=== PATIENT | male | born 1975 | race American Indian/Alaskan Native ===

== ENCOUNTER 2017-07-24 21:29 | Observation (INO) | payer SELFPAY ==
[2017-07-24 21:48] VITALS: BMI 29.7
--- NOTE | 2017-07-24 22:48 | ED PDOC ---
Arrival/HPI - General Chief Complaint: Lower Extremity Problem/Injury Time Seen by Provider: 07/24/17 22:20 Historian: Patient - History of Present Illness Narrative History of Present Illness (Text): 07/24/17 22:48 42 year old male, whose past medical history includes chronic back pain, presents to the emergency department complaining of chest discomfort and shortness of breath at time that began a few weeks ago associated with bilateral leg swelling. Patient finds it difficultly to ambulate due to leg swelling. Patient denies any history of trauma or drug use. Patient denies any fever, chills, cough, chest pain, nausea, vomiting, diarrhea, urinary symptoms, back pain, neck pain, headache, dizziness, or any other complaints. PMD: Dr. Kashmir Aceves Time/Duration: > week Symptom Onset: Gradual Symptom Course: Unchanged Activities at Onset: Light Context: Home Past Medical History - Provider Review Nursing Documentation Reviewed: Yes - Infectious Disease Hx of Infectious Diseases: None - Tetanus Immunization Tetanus Immunization: Unknown - Cardiac Hx Cardiac Disorders: No Hx Hypertension: No - Pulmonary Hx Bronchitis: Yes - Neurological HX Cerebrovascular Accident: No Hx Seizures: No - HEENT Hx HEENT Disorder: No - Renal Hx Renal Disorder: No - Endocrine/Metabolic Hx Endocrine Disorders: No - Hematological/Oncological Hx Cancer: No - Integumentary Hx Dermatological Disorder: No - Musculoskeletal/Rheumatological Hx Musculoskeletal Disorders: No Hx Falls: No - Gastrointestinal Hx Gastrointestinal Disorders: No - Genitourinary/Gynecological Hx Sexually Transmitted Diseases: No - Psychiatric Hx Substance Use: Yes (Snorts Heroin and Cocaine) - Anesthesia Hx Anesthesia: No Family/Social History - Physician Review Nursing Documentation Reviewed: Yes Family/Social History: No Known Family HX Smoking Status: Heavy Smoker > 10 Cigarettes Daily Hx Alcohol Use: Yes Hx Substance Use: Yes (Snorts Heroin and Cocaine) Substance used: Heroine, Marijuana, PCP Allergies/Home Meds Allergies/Adverse Reactions: Allergies No Known Allergies Allergy (Verified 12/02/16 01:42) Review of Systems - Physician Review All systems were reviewed & negative as marked: Yes - Review of Systems Constitutional: absent: Fevers, Other (Chills) Respiratory: SOB. absent: Cough Cardiovascular: Chest Pain, Edema (bialteral lower leg edema) Gastrointestinal: absent: Diarrhea, Nausea, Vomiting Genitourinary Male: absent: Dysuria, Frequency, Hematuria Musculoskeletal: absent: Back Pain, Neck Pain Neurological: absent: Headache, Dizziness Physical Exam Vital Signs Reviewed: Yes Vital Signs Temp Pulse Resp BP Pulse Ox 07/25/17 01:03 98.0 F 83 18 128/70 100 Temperature: Afebrile Blood Pressure: Normal Pulse: Regular Respiratory Rate: Normal Appearance: Positive for: Well-Appearing, Non-Toxic, Comfortable, Other (Obese) Pain Distress: None Mental Status: Positive for: Alert and Oriented X 3 - Systems Exam Head: Present: Atraumatic, Normocephalic Pupils: Present: PERRL Extroacular Muscles: Present: EOMI Conjunctiva: Present: Normal Mouth: Present: Moist Mucous Membranes Neck: Present: Normal Range of Motion (Supple). No: MIDLINE TENDERNESS, Paraspinal Tenderness Respiratory/Chest: Present: Clear to Auscultation, Good Air Exchange. No: Respiratory Distress, Accessory Muscle Use Cardiovascular: Present: Regular Rate and Rhythm, Normal S1, S2. No: Murmurs Abdomen: No: Tenderness, Distention, Peritoneal Signs Back: Present: Normal Inspection Upper Extremity: Present: Normal Inspection. No: Cyanosis, Edema Lower Extremity: Present: Edema (Bilateral lower leg edema) Neurological: Present: GCS=15, CN II-XII Intact, Speech Normal Skin: Present: Warm, Dry, Normal Color. No: Rashes Psychiatric: Present: Alert, Oriented x 3, Normal Insight, Normal Concentration Medical Decision Making ED Course and Treatment: 07/24/17 22:48 Impression: 42 year old male presents complaining of chest discomfort and shortness of breath at times that began a few weeks ago associated with bilateral leg swelling. Plan: -- EKG -- Labs -- Chest X-ray -- US Duplex Lower Extrm Vein Bilat -- Reassess and disposition Progress Notes: 07/25/17 00:29 EKG shows NSR at 95 BPM with prolonged QT. Nonspecific ST/T Changes. Interpreted by me. 07/25/17 00:51 Doppler Ultrasound: Negative 07/25/17 00:52 CXR Impression: As read by me, no acute process. 07/25/17 01:[address] Washington who is aware and agrees with the plan. Accepts the patient to hospitalist service. - Lab Interpretations Lab Results: 07/24/17 22:55 07/24/17 22:55 Lab Results 07/24/17 22:55: WBC 8.5, RBC 4.31, Hgb 13.7 L, Hct 40.4 L, MCV 93.7, MCH 31.8, MCHC 33.9, RDW 12.7, Plt Count 367, MPV 9.0 07/24/17 22:55: Sodium 143, Potassium 3.8, Chloride 100, Carbon Dioxide 33, Anion Gap 14, BUN 8, Creatinine 0.8, Est GFR ( Amer) > 60, Est GFR (Non- Af Amer) > 60, Random Glucose 136 H, Calcium 10.1, Total Bilirubin 0.3, AST 61 H D, ALT 61 H, Alkaline Phosphatase 62, Lactate Dehydrogenase 555, Total Creatine Kinase 1097 H, CK-MB (CK-2) 3.1, CK-MB (CK-2) % Cancelled, Troponin I < 0.01, NT-Pro-B Natriuret Pep < 11.1, Total Protein 7.0, Albumin 3.9, Globulin 3.1, Albumin/Globulin Ratio 1.3 07/24/17 22:55: PT 12.1, INR 1.06, APTT 32.4 I have reviewed the lab results: Yes - RAD Interpretation Radiology Orders: 07/24/17 22:44 CHEST PORTABLE [RAD] Stat 07/24/17 22:45 DUPLEX LOWER EXTRM VEIN BILAT [US] Stat - EKG Interpretation Interpreted by ED Physician: Yes Type: 12 lead EKG - Medication Orders Current Medication Orders: Discontinued Medications Aspirin (Aspirin) 325 mg PO ONCE STA Stop: 07/24/17 23:48 Last Admin: 07/25/17 00:52 Dose: 325 mg - Scribe Statement The provider has reviewed the documentation as recorded by the Cheryl Schaefer Provider Scribe Attestation: All medical record entries made by the Cheryl were at my direction and personally dictated by me. I have reviewed the chart and agree that the record accurately reflects my personal performance of the history, physical exam, medical decision making, and the department course for this patient. I have also personally directed, reviewed, and agree with the discharge instructions and disposition. Disposition/Present on Arrival - Present on Arrival Any Indicators Present on Arrival: No History of DVT/PE: No History of Uncontrolled Diabetes: No Urinary Catheter: No History of Decub. Ulcer: No History Surgical Site Infection Following: None - Disposition Have Diagnosis and Disposition been Completed?: Yes Diagnosis: Chest pain, Leg swelling Disposition: HOSPITALIZED Disposition Time: 01:04 Patient Plan: Observation Patient Problems: Current Active Problems Problem Status Onset Chest pain Acute Leg swelling Acute Condition: STABLE Discharge Instructions (ExitCare): Chest Pain (ED) Referrals: Chandler Aceves MD [Primary Care Provider] - Follow up with primary Forms: [employer] (Hungarian)
[2017-07-24 23:13] LABS: HEMOGLOBIN 13.7 g/dL (14.0-18.0); MEAN CELL VOLUME 93.7 fl (80.0-105.0); MEAN CORPUSCULAR HEMOGLOBIN 31.8 pg (25.0-35.0); MEAN CORPUSCULAR HGB CONC 33.9 g/dl (31.0-37.0); RBC 4.31 10^6/uL (3.5-6.1); RED CELL DISTRIBUTION WIDTH 12.7 % (11.5-14.5); WHITE BLOOD COUNT 8.5 10^3/ul (4.5-11.0)
[2017-07-24 23:24] LABS: BLOOD UREA NITROGEN 8 mg/dL (7-21); GFR AFRICAN-AMERICAN > 60; GFR NON-AFRICAN AMERICAN > 60
[2017-07-24 23:25] LABS: ALB/GLOB RATIO 1.3 (1.1-1.8); ALBUMIN 3.9 g/dL (3.0-4.8); ALT/SGPT 61 U/L (7-56); AST/SGOT 61 U/L (17-59); CALCIUM 10.1 mg/dL (8.4-10.5)
[2017-07-24 23:35] LABS: TROPONIN I < 0.01 ng/mL
[2017-07-24 23:36] LABS: B-TYPE NATRIURETIC PEPTIDE < 11.1 pg/mL (0-450)
[2017-07-24 23:37] LABS: INR 1.06 (0.93-1.08); PROTHROMBIN TIME 12.1 SECONDS (9.4-12.5)
[2017-07-24 23:38] LABS: PARTIAL THROMBOPLASTIN TIME 32.4 Seconds (25.1-36.5)
[2017-07-24 23:44] LABS: CK-MB 3.1 ng/mL (0.0-3.6)
[2017-07-24] MEDS ORDERED: Morphine 4 mg/ml ISec IVP STA (23:47)
--- NOTE | 2017-07-25 02:23 | CP.PCM.HP ---
History of Present Illness - History of Present Illness History of Present Illness: Medicine H&P: Dr. Washington Chief Complaint: Abdominal Pain and LLE Pain HPI: 42 year old male with past medical history of chronic back pain, sleep apnea, opioid use, and cocaine abuse presents with one week duration of progressively worsening lower back pain that shoots down his left lower extremity. Patient's girlfriend at bedside helping with history as patient sleeps. Patient states that he has had several injections in his lower back for pain but it has not helped. Patient also complains of epigastric abdominal pain with bilateral lower extremity swelling. Patient told ED physician that he has chest pain, but denies any radiation, any associated symptoms and denies chest pain on this interview Review Of Systems: 12 point ROS obtained and negative except as per HPI Surgical History: Injections in back Medical History: Chronic Back Pain, Sleep Apnea Allergies: NKDA Social History: Patient admits to cocaine and opioids; admits to tobacco; denies alcohol Home Meds: Reviewed, see MAR Family History: Hypertension PMD: Denies Present on Admission - Present on Admission Any Indicators Present on Admission: No Past Patient History - Infectious Disease Hx of Infectious Diseases: None - Tetanus Immunizations Tetanus Immunization: Unknown - Past Social History Smoking Status: Heavy Smoker > 10 Cigarettes Daily - CARDIAC Hx Cardiac Disorders: No Hx Hypertension: No - PULMONARY Hx Bronchitis: Yes - NEUROLOGICAL HX Cerebrovascular Accident: No Hx Seizures: No - HEENT Hx HEENT Problems: No - RENAL Hx Chronic Kidney Disease: No - ENDOCRINE/METABOLIC Hx Endocrine Disorders: No - HEMATOLOGICAL/ONCOLOGICAL Hx Cancer: No - INTEGUMENTARY Hx Dermatological Problems: No - MUSCULOSKELETAL/RHEUMATOLOGICAL Hx Musculoskeletal Disorders: No Hx Falls: No - GASTROINTESTINAL Hx Gastrointestinal Disorders: No - GENITOURINARY/GYNECOLOGICAL Hx Sexually Transmitted Disorders: No - PSYCHIATRIC Hx Substance Use: Yes (Snorts Heroin and Cocaine) - SURGICAL HISTORY Hx Surgeries: No - ANESTHESIA Hx Anesthesia: No Meds Allergies/Adverse Reactions: Allergies Allergy/AdvReac Type Severity Reaction Status Date / Time No Known Allergies Allergy Verified 12/02/16 01:42 Physical Exam - Constitutional Appears: Well - Head Exam Head Exam: ATRAUMATIC, NORMAL INSPECTION, NORMOCEPHALIC - Eye Exam Eye Exam: EOMI, Normal appearance, PERRL Pupil Exam: NORMAL ACCOMODATION, PERRL - ENT Exam ENT Exam: Mucous Membranes Moist, Normal Exam - Neck Exam Neck exam: Positive for: Normal Inspection - Respiratory Exam Respiratory Exam: Clear to Auscultation Bilateral, NORMAL BREATHING PATTERN - Cardiovascular Exam Cardiovascular Exam: REGULAR RHYTHM - GI/Abdominal Exam GI & Abdominal Exam: Normal Bowel Sounds, Soft. absent: Tenderness - Extremities Exam Extremities exam: Positive for: normal inspection - Back Exam Back exam: NORMAL INSPECTION - Neurological Exam Neurological exam: Alert, CN II-XII Intact, Normal Gait, Oriented x3, Reflexes Normal - Psychiatric Exam Psychiatric exam: Normal Affect, Normal Mood - Skin Skin Exam: Dry, Intact, Normal Color, Warm Results - Vital Signs Recent Vital Signs: Last Vital Signs Temp 98.0 F 07/25/17 01:03 Pulse 83 07/25/17 01:03 Resp 18 07/25/17 01:03 BP 128/70 07/25/17 01:03 Pulse Ox 100 07/25/17 01:03 - Labs Result Diagrams: 07/24/17 22:55 07/24/17 22:55 Assessment & Plan - Assessment and Plan (Free Text) Assessment: 42 year old male with pertinent history of chronic back pain and opioid abuse presenting with chest pain and abdominal pain as well as back pain radiating down his left lower extremity. Tropes and EKG negative X 1, bnp negative X1. Patient denies cardiac history. Patient's LFT's are elevated and there is abdominal pain with bilateral lower extremity pitting edema. Creatinine Kinase is also elevated and patient's drug screen positive for cocaine. Chest pain rule out ACS - Tropes, EKG series - No need for cardio consult at this time - Consider ECHO with day team Abdominal Pain, likely 2/2 Drug Toxicity - Hep panel - Abdominal u/s - GI Consult: Dr. Bennett - Consider CT Abdomen Pelvis Sleep Apnea - CPAP Chronic Pain - Continue home medications GI/DVT Prophylaxis - Protonix/Lovenox
[2017-07-25] MEDS: Sodium Chloride 0.9% 1,000 ML IV SCH ×2 (04:00→14:33)
[2017-07-25] MEDS ORDERED: Pantoprazole 40 mg EC Tab PO SCH (06:00)
[2017-07-25 06:32] VITALS: RESP 20
[2017-07-25 07:11] LABS: BASO # 0.02 K/mm3 (0.0-2.0); BASO % 0.3 % (0.0-3.0); EOS # 0.5 (0.0-0.7); EOS % 6.2 % (1.5-5.0); GRAN # 3.07 (1.4-6.5); GRAN % 39.4 % (50.0-68.0); HEMOGLOBIN 13.1 g/dL (14.0-18.0); LYMPH # 3.7 (1.2-3.4); LYMPH % 47.2 % (22.0-35.0); MEAN CELL VOLUME 94.1 fl (80.0-105.0); MEAN CORPUSCULAR HEMOGLOBIN 30.9 pg (25.0-35.0); MEAN CORPUSCULAR HGB CONC 32.8 g/dl (31.0-37.0); MEAN PLATELET VOLUME 9.2 fl (7.0-11.0); MONO # 0.5 (0.1-0.6); MONO % 6.9 % (1.0-6.0); RBC 4.24 10^6/uL (3.5-6.1); WHITE BLOOD COUNT 7.8 10^3/ul (4.5-11.0)
[2017-07-25 07:30] LABS: TROPONIN I < 0.01 ng/mL
[2017-07-25 08:01] LABS: ALB/GLOB RATIO 1.3 (1.1-1.8); ALBUMIN 3.7 g/dL (3.0-4.8); ALT/SGPT 57 U/L (7-56); AST/SGOT 46 U/L (17-59); BLOOD UREA NITROGEN 8 mg/dL (7-21); CALCIUM 9.9 mg/dL (8.4-10.5); GFR AFRICAN-AMERICAN > 60; GFR NON-AFRICAN AMERICAN > 60
--- NOTE | 2017-07-25 08:53 | RAD ---
HISTORY: chest pain COMPARISON: No prior. FINDINGS: LUNGS: No active pulmonary disease. Left costophrenic angle is excluded from the radiograph. PLEURA: No significant pleural effusion identified, no pneumothorax apparent. CARDIOVASCULAR: Heart is mildly enlarged. This may be related to the portable projection. Left costophrenic angle is excluded from the radiograph. OSSEOUS STRUCTURES: No significant abnormalities. VISUALIZED UPPER ABDOMEN: Normal. OTHER FINDINGS: None. IMPRESSION: No active disease.
--- NOTE | 2017-07-25 09:13 | US ---
HISTORY: abdominal pain COMPARISON: None. TECHNIQUE: Sonographic evaluation of the abdomen. FINDINGS: LIVER: Measures 16.8 cm. Mildly increased overall echogenicity of the liver parenchyma. No mass. No intrahepatic bile duct dilatation. GALLBLADDER: Gallbladder is moderately contracted with possible gallbladder sludge. No gallbladder wall thickening is appreciated. No pericholecystic fluid is noted. The contracted state of the gallbladder limits evaluation. COMMON BILE DUCT: Measures 3-4 mm. No stones. No dilatation. PANCREAS: Pancreas is grossly normal in outline. No pancreatic enlargement is seen. No peripancreatic collections are noted. RIGHT KIDNEY: Measures 10.0cm. Normal echogenicity. No calculus, mass, or hydronephrosis. LEFT KIDNEY: Measures 12.2cm. Normal echogenicity. No calculus, mass, or hydronephrosis. SPLEEN: Normal in size and contour. No mass. AORTA: Visualized aorta was within normal limits although the majority of the aorta was obscured by bowel gas. IVC: IVC was not adequately seen. OTHER FINDINGS: No ascites. IMPRESSION: Mild fatty infiltration of the liver. Liver is top normal in size. Contracted gallbladder limiting evaluation. No appreciable gallbladder wall thickening. No ductal dilatation.
--- NOTE | 2017-07-25 09:23 | CP.PCM.CON ---
History of Present Illness - History of Present Illness History of Present Illness: Asked by hospitalist team for a GI consultation on this patient. 42 year old male with history of obesity, sleep apnea, polysubstance abuse who presents to hospital with complaint of lower extremity swelling/pain and LUQ abdominal pain. He describes intermittent LUQ pain for the past 2 months which is 4/10 intensity, at times radiates to epigastric area and worse after meal consumption. He denies associated nausea, vomiting, diarrhea, fever/chills, weight loss, or rectal bleeding. He also describes sharp L sided thigh pain which limits his mobility along with progressive bilateral lower extremity swelling for the past few weeks. He admits to recent drug use yesterday, though cannot recall which type. No prior endoscopic evaluation. Social history: smokes 1/2 PPD cigarettes, no ETOH, +drug use Family history: reviewed with patient, denies GI malignancies Review of Systems - Review of Systems Review of Systems: - All other comprehensive 12 point review of systems performed, negative - Cardiovascular Cardiovascular: absent: Acrocyanosis, Chest Pain, Chest Pain at Rest, Chest Pain with Activity, Claudication, Diaphoresis, Dyspnea, Dyspnea on Exertion, Edema, Irregular Heart Rhythm, Pain Radiating to Arm/Neck/Jaw, Leg Edema, Leg Ulcers, Lightheadedness, Orthopnea, Palpitations, Paroxysmal Nocturnal Dyspnea, Pedal Edema, Radiating Pain, Rapid Heart Rate, Slow Heart Rate, Syncope, Other - Respiratory Respiratory: absent: Cough, Dyspnea, Hemoptysis, Dyspnea on Exertion, Wheezing, Snoring, Stridor, Pain on Inspiration, Chest Congestion, Excessive Mucous Production, Change in Mucous Color, Pain with Coughing, Other - Gastrointestinal Gastrointestinal: Abdominal Pain - Musculoskeletal Musculoskeletal: Radiating Pain into Limb - Neurological Neurological: absent: Abnormal Gait, Abnormal Hearing, Abnormal Movements, Abnormal Speech, Behavioral Changes, Burning Sensations, Confusion, Convulsions , Disequilibrium, Dizziness, Numbness, Focal Weakness, Frequent Falls, Headaches , Lack of Coordination, Loss of Vision, Memory Loss, Paresthesias, Radicular Pain, Restless Legs, Sensory Deficit, Syncope, Tingling, Tremor, Vertigo, Weakness, Other Visual Disturbances, Other Past Patient History - Infectious Disease Hx of Infectious Diseases: None - Tetanus Immunizations Tetanus Immunization: Unknown - Past Social History Smoking Status: Heavy Smoker > 10 Cigarettes Daily - CARDIAC Hx Cardiac Disorders: No Hx Hypertension: No - PULMONARY Hx Asthma: Yes Hx Sleep Apnea: Yes - NEUROLOGICAL HX Cerebrovascular Accident: No Hx Seizures: No - HEENT Hx HEENT Problems: No - RENAL Hx Chronic Kidney Disease: No - ENDOCRINE/METABOLIC Hx Endocrine Disorders: No - HEMATOLOGICAL/ONCOLOGICAL Hx Cancer: No - INTEGUMENTARY Hx Dermatological Problems: No - MUSCULOSKELETAL/RHEUMATOLOGICAL Hx Back Pain: Yes (Chronic) Hx Falls: No - GASTROINTESTINAL Hx Gastrointestinal Disorders: No - GENITOURINARY/GYNECOLOGICAL Hx Sexually Transmitted Disorders: No - PSYCHIATRIC Hx Psychophysiologic Disorder: Yes (Heavy smoker, Heroin and Cocaine use) Hx Substance Use: Yes - SURGICAL HISTORY Hx Surgeries: Yes (Right rotator cuff surgery) - ANESTHESIA Hx Anesthesia: No Meds Allergies/Adverse Reactions: Allergies Allergy/AdvReac Type Severity Reaction Status Date / Time No Known Allergies Allergy Verified 12/02/16 01:42 - Medications Medications: Current Medications Diazepam (Valium) 2 mg PO BID [facility] PRN Reason: Protocol Enoxaparin Sodium (Lovenox) 40 mg SC DAILY [facility] PRN Reason: Protocol Gabapentin (Neurontin) 300 mg PO TID [facility] PRN Reason: Protocol Sodium Chloride (Sodium Chloride 0.9%) 1,000 mls @ 100 mls/hr IV .Q10H [facility] Last Admin: 07/25/17 04:00 Dose: 100 mls/hr Pantoprazole Sodium (Protonix Ec Tab) 40 mg PO 0600 [facility] Last Admin: 07/25/17 06:58 Dose: 40 mg Tramadol HCl (Ultram) 50 mg PO TID [facility] Trazodone HCl (Desyrel) 100 mg PO HS PRN PRN Reason: Insomnia Physical Exam - Constitutional Appears: Non-toxic, No Acute Distress - Head Exam Head Exam: NORMAL INSPECTION - Eye Exam Eye Exam: EOMI, Normal appearance - ENT Exam ENT Exam: Mucous Membranes Moist - Respiratory Exam Respiratory Exam: Clear to Auscultation Bilateral - Cardiovascular Exam Cardiovascular Exam: REGULAR RHYTHM, +S1, +S2 - GI/Abdominal Exam GI & Abdominal Exam: Normal Bowel Sounds, Soft, Tenderness Additional comments: obese, mild LUQ tenderness to palpation, no rebound/guarding no palpable hepato/splenomegaly - Extremities Exam Extremities exam: Positive for: pedal edema - Neurological Exam Neurological exam: Alert, CN II-XII Intact, Oriented x3, Reflexes Normal - Psychiatric Exam Psychiatric exam: Normal Affect, Normal Mood - Skin Skin Exam: Dry, Intact, Normal Color, Warm Results - Vital Signs Recent Vital Signs: Last Vital Signs Temp 97.4 F L 07/25/17 06:00 Pulse 88 07/25/17 06:00 Resp 20 07/25/17 06:00 BP 141/71 07/25/17 06:00 Pulse Ox 96 07/25/17 06:00 - Labs Result Diagrams: 07/25/17 06:00 07/25/17 06:00 Labs: Laboratory Results - last 24 hr 07/25/17 07/25/17 07/25/17 01:30 06:00 06:00 WBC 7.8 RBC 4.24 Hgb 13.1 L Hct 39.9 L MCV 94.1 MCH 30.9 MCHC 32.8 RDW 13.0 Plt Count 380 MPV 9.2 Gran % 39.4 L Lymph % (Auto) 47.2 H [place] % (Auto) 6.9 H Eos % (Auto) 6.2 H Baso % (Auto) 0.3 Gran # 3.07 Lymph # (Auto) 3.7 H [place] # (Auto) 0.5 Eos # (Auto) 0.5 Baso # (Auto) 0.02 Sodium 142 Potassium 3.9 Chloride 101 Carbon Dioxide 31 Anion Gap 14 BUN 8 Creatinine 0.8 Est GFR ( Amer) > 60 Est GFR (Non-Af Amer) > 60 Random Glucose 112 H Calcium 9.9 Phosphorus 4.7 H Magnesium 2.4 H Total Bilirubin 0.2 AST 46 ALT 57 H Alkaline Phosphatase 60 Lactate Dehydrogenase Total Creatine Kinase CK-MB (CK-2) CK-MB (CK-2) % Troponin I Total Protein 6.6 Albumin 3.7 Globulin 2.9 Albumin/Globulin Ratio 1.3 07/25/17 06:00 WBC RBC Hgb Hct MCV MCH MCHC RDW Plt Count MPV Gran % Lymph % (Auto) [place] % (Auto) Eos % (Auto) Baso % (Auto) Gran # Lymph # (Auto) [place] # (Auto) Eos # (Auto) Baso # (Auto) Sodium Potassium Chloride Carbon Dioxide Anion Gap BUN Creatinine Est GFR ( Amer) Est GFR (Non-Af Amer) Random Glucose Calcium Phosphorus Magnesium Total Bilirubin AST ALT Alkaline Phosphatase Lactate Dehydrogenase 449 Total Creatine Kinase 788 H CK-MB (CK-2) 2.0 CK-MB (CK-2) % Cancelled Troponin I < 0.01 Total Protein Albumin Globulin Albumin/Globulin Ratio Assessment & Plan - Assessment and Plan (Free Text) Assessment: Obesity Sleep apnea Polysubstance abuse Abdominal pain - no worrisome or alarm features, suggestive of non-ulcer dyspepsia Lower extremity edema Plan: - Diet as tolerated - Continue with PPI therapy - Await results of viral hepatitis panel and abdominal US - Continue to monitor LFTs - Substance abuse cessation counseling - No further planned GI interventions, suggest additional outpatient follow up. Will sign off case, please reconsult as necessary, thank you.
[2017-07-25] MEDS ORDERED: Enoxaparin 40 mg Syringe SC SCH (10:00)
--- NOTE | 2017-07-25 11:18 | CARD ---
APPROVED REPORT EKG Measurement Heart [id number] <Conclusion> Normal sinus rhythm Normal ECG
--- NOTE | 2017-07-25 11:19 | CARD ---
APPROVED REPORT EKG Measurement Heart [id number] <Conclusion> Normal sinus rhythm Prolonged QT Abnormal ECG
--- NOTE | 2017-07-25 11:58 | CP.PCM.DIS ---
<Luis Daniel Pollard - Last Filed: 07/25/17 16:57> Provider - Provider Date of Admission: 07/25/17 01:02 Attending physician: Saúl Ha MD Primary care physician: Chandler Aceves MD Consults: GI: Donald Time Spent in preparation of Discharge (in minutes): 35 Diagnosis - Discharge Diagnosis (1) Epigastric pain Status: Resolved Priority: High (2) Chronic back pain Status: Chronic Priority: Medium (3) Chest pain Status: Resolved Priority: Medium (4) Leg swelling Status: Chronic Priority: Medium Hospital Course - Lab Results Lab Results: Most Recent Lab Values WBC 7.8 10^3/ul (4.5-11.0) 07/25/17 06:00 RBC 4.24 10^6/uL (3.5-6.1) 07/25/17 06:00 Hgb 13.1 g/dL (14.0-18.0) L 07/25/17 06:00 Hct 39.9 % (42.0-52.0) L 07/25/17 06:00 MCV 94.1 fl (80.0-105.0) 07/25/17 06:00 MCH 30.9 pg (25.0-35.0) 07/25/17 06:00 MCHC 32.8 g/dl (31.0-37.0) 07/25/17 06:00 RDW 13.0 % (11.5-14.5) 07/25/17 06:00 Plt Count 380 10^3/uL (120.0-450.0) 07/25/17 06:00 MPV 9.2 fl (7.0-11.0) 07/25/17 06:00 Gran % 39.4 % (50.0-68.0) L 07/25/17 06:00 Lymph % (Auto) 47.2 % (22.0-35.0) H 07/25/17 06:00 [place] % (Auto) 6.9 % (1.0-6.0) H 07/25/17 06:00 Eos % (Auto) 6.2 % (1.5-5.0) H 07/25/17 06:00 Baso % (Auto) 0.3 % (0.0-3.0) 07/25/17 06:00 Gran # 3.07 (1.4-6.5) 07/25/17 06:00 Lymph # (Auto) 3.7 (1.2-3.4) H 07/25/17 06:00 [place] # (Auto) 0.5 (0.1-0.6) 07/25/17 06:00 Eos # (Auto) 0.5 (0.0-0.7) 07/25/17 06:00 Baso # (Auto) 0.02 K/mm3 (0.0-2.0) 07/25/17 06:00 PT 12.1 SECONDS (9.4-12.5) 07/24/17 22:55 INR 1.06 (0.93-1.08) 07/24/17 22:55 APTT 32.4 Seconds (25.1-36.5) 07/24/17 22:55 Sodium 142 mmol/L (132-148) 07/25/17 06:00 Potassium 3.9 mmol/L (3.6-5.0) 07/25/17 06:00 Chloride 101 mmol/L (98-107) 07/25/17 06:00 Carbon Dioxide 31 mmol/L (21-33) 07/25/17 06:00 Anion Gap 14 (10-20) 07/25/17 06:00 BUN 8 mg/dL (7-21) 07/25/17 06:00 Creatinine 0.8 mg/dl (0.8-1.5) 07/25/17 06:00 Est GFR ( Amer) > 60 07/25/17 06:00 Est GFR (Non-Af Amer) > 60 07/25/17 06:00 Random Glucose 112 mg/dL (70-110) H 07/25/17 06:00 Calcium 9.9 mg/dL (8.4-10.5) 07/25/17 06:00 Phosphorus 4.7 mg/dL (2.5-4.5) H 07/25/17 01:30 Magnesium 2.4 mg/dL (1.7-2.2) H 07/25/17 01:30 Total Bilirubin 0.2 mg/dL (0.2-1.3) 07/25/17 06:00 AST 46 U/L (17-59) 07/25/17 06:00 ALT 57 U/L (7-56) H 07/25/17 06:00 Alkaline Phosphatase 60 U/L (38-126) 07/25/17 06:00 Lactate Dehydrogenase 449 U/L (333-699) 07/25/17 06:00 Total Creatine Kinase 788 U/L (35-230) H 07/25/17 06:00 CK-MB (CK-2) 2.0 ng/mL (0.0-3.6) 07/25/17 06:00 CK-MB (CK-2) % Cancelled 07/24/17 22:55 Troponin I < 0.01 ng/mL 07/25/17 06:00 NT-Pro-B Natriuret Pep < 11.1 pg/mL (0-450) 07/24/17 22:55 Total Protein 6.6 g/dL (5.8-8.3) 07/25/17 06:00 Albumin 3.7 g/dL (3.0-4.8) 07/25/17 06:00 Globulin 2.9 gm/dL 07/25/17 06:00 Albumin/Globulin Ratio 1.3 (1.1-1.8) 07/25/17 06:00 - Hospital Course Hospital Course: This is a 42 yo AA M with PMH of chronic back pain, ANTHONY on CPAP, opioid use, and polysubstance abuse who presented with complaint of worsening back pain radiating to LLE x1 week, epigastric pain, and bilateral LE swelling. The ED also reported the patient complaining of chest pain, but the patient continues to deny either the presence of chest pain or reporting chest pain to the ED. Patient seen by GI, who reviewed labs and Abd US, and reported unlikely to be GI issue. Patient reported hx of cocaine abuse and heroin, snorting but never injection, up to 3 times per week but refuses to detail last use. His legs were found to only have mild pitting edema, and his chest x-ray and lung auscultation were not suggestive of any pleural effusions/fluid overload. Trops x3 were obtained and were negative, and EKG did not show any arrhythmia or interval abnormalities, so patient was cleared for discharge. He was instructed to resume his home medications, to follow up with his PMD (Dr. Aceves ) within 1 week, and to follow up with his pain management/spine physician as previously scheduled. He was also instructed to discuss need for possible Echocardiogram with his PMD, to be obtained as outpatient, given his complaint of increased leg swelling. He was also instructed to cease all illicit substance use, especially in light of concern for possible cardiac dysfunction. He expressed understanding and agreement with these instructions. He was then discharged. Patient seen, reviewed, and discussed with attending, Dr. Ha. Discharge Exam - Head Exam Head Exam: ATRAUMATIC, NORMAL INSPECTION, NORMOCEPHALIC - Eye Exam Eye Exam: EOMI, Normal appearance. absent: Conjunctival injection, Scleral icterus Pupil Exam: absent: Irregular, Unequal - ENT Exam ENT Exam: Mucous Membranes Moist - Neck Exam Neck exam: Full Rom, Normal Inspection - Respiratory Exam Respiratory Exam: Decreased Breath Sounds (mildly decreased breath sounds in all howard, possibly 2/2 body habitus), Clear to PA & Lateral, NORMAL BREATHING PATTERN. absent: Accessory Muscle Use, Chest Wall Tenderness, Prolonged Expiratory Phase, Rales, Rhonchi, Wheezes, Respiratory Distress - Cardiovascular Exam Cardiovascular Exam: REGULAR RHYTHM, RRR, +S1, +S2. absent: Bradycardia, Tachycardia, Irregular Rhythm, JVD, +S4 - GI/Abdominal Exam GI & Abdominal Exam: Normal Bowel Sounds, Soft, Tenderness (mild discomfort but not outright pain when palpating epigastric region). absent: Diminished Bowel Sounds, Distended, Firm, Guarding, Hyperactive Bowel Sounds, Hypoactive Bowel Sounds, Rigid - Extremities Exam Extremities exam: pedal edema (trace to +1 pitting edema in bilateral LE from ankles to bottom 1/3rd of shins) - Neurological Exam Additional comments: awake and alert, following all commands appropriately, moving all extremities spontaneously, holding cane he says is for ambulatory assist - Psychiatric Exam Psychiatric exam: Normal Affect, Normal Mood - Skin Skin Exam: Dry, Intact, Normal Color, Warm Discharge Plan - Follow Up Plan Condition: STABLE Disposition: HOME/ ROUTINE Instructions: Heart Healthy Diet, Chronic Pain (DC), Shortness of Breath ( Dyspnea) (DC), Chest Pain (DC), Drug Abuse and Drug Addiction (DC) Additional Instructions: Please resume all home medications as previously prescribed. Please avoid all further illicit substance abuse, including heroin and cocaine. Using these further may cause irreversible damage to your heart and may kill you. Please follow up with your PMD (Dr. Aceves) within 1 week of discharge. Please follow up with your paint mixer hand as previously scheduled. Please return to a hospital if you experience worsening or new concerning symptoms. Referrals: Chandler Aceves MD [Primary Care Provider] - <Saúl Ha - Last Filed: 07/25/17 17:13> Provider - Provider Date of Admission: 07/25/17 01:02 Attending physician: Saúl Ha MD Primary care physician: Chandler Aceves MD Hospital Course - Lab Results Lab Results: Most Recent Lab Values WBC 7.8 10^3/ul (4.5-11.0) 07/25/17 06:00 RBC 4.24 10^6/uL (3.5-6.1) 07/25/17 06:00 Hgb 13.1 g/dL (14.0-18.0) L 07/25/17 06:00 Hct 39.9 % (42.0-52.0) L 07/25/17 06:00 MCV 94.1 fl (80.0-105.0) 07/25/17 06:00 MCH 30.9 pg (25.0-35.0) 07/25/17 06:00 MCHC 32.8 g/dl (31.0-37.0) 07/25/17 06:00 RDW 13.0 % (11.5-14.5) 07/25/17 06:00 Plt Count 380 10^3/uL (120.0-450.0) 07/25/17 06:00 MPV 9.2 fl (7.0-11.0) 07/25/17 06:00 Gran % 39.4 % (50.0-68.0) L 07/25/17 06:00 Lymph % (Auto) 47.2 % (22.0-35.0) H 07/25/17 06:00 [place] % (Auto) 6.9 % (1.0-6.0) H 07/25/17 06:00 Eos % (Auto) 6.2 % (1.5-5.0) H 07/25/17 06:00 Baso % (Auto) 0.3 % (0.0-3.0) 07/25/17 06:00 Gran # 3.07 (1.4-6.5) 07/25/17 06:00 Lymph # (Auto) 3.7 (1.2-3.4) H 07/25/17 06:00 [place] # (Auto) 0.5 (0.1-0.6) 07/25/17 06:00 Eos # (Auto) 0.5 (0.0-0.7) 07/25/17 06:00 Baso # (Auto) 0.02 K/mm3 (0.0-2.0) 07/25/17 06:00 PT 12.1 SECONDS (9.4-12.5) 07/24/17 22:55 INR 1.06 (0.93-1.08) 07/24/17 22:55 APTT 32.4 Seconds (25.1-36.5) 07/24/17 22:55 Sodium 142 mmol/L (132-148) 07/25/17 06:00 Potassium 3.9 mmol/L (3.6-5.0) 07/25/17 06:00 Chloride 101 mmol/L (98-107) 07/25/17 06:00 Carbon Dioxide 31 mmol/L (21-33) 07/25/17 06:00 Anion Gap 14 (10-20) 07/25/17 06:00 BUN 8 mg/dL (7-21) 07/25/17 06:00 Creatinine 0.8 mg/dl (0.8-1.5) 07/25/17 06:00 Est GFR ( Amer) > 60 07/25/17 06:00 Est GFR (Non-Af Amer) > 60 07/25/17 06:00 Random Glucose 112 mg/dL (70-110) H 07/25/17 06:00 Calcium 9.9 mg/dL (8.4-10.5) 07/25/17 06:00 Phosphorus 4.7 mg/dL (2.5-4.5) H 07/25/17 01:30 Magnesium 2.4 mg/dL (1.7-2.2) H 07/25/17 01:30 Total Bilirubin 0.2 mg/dL (0.2-1.3) 07/25/17 06:00 AST 46 U/L (17-59) 07/25/17 06:00 ALT 57 U/L (7-56) H 07/25/17 06:00 Alkaline Phosphatase 60 U/L (38-126) 07/25/17 06:00 Lactate Dehydrogenase 389 U/L (333-699) 07/25/17 15:30 Total Creatine Kinase 586 U/L (35-230) H 07/25/17 15:30 CK-MB (CK-2) 1.2 ng/mL (0.0-3.6) 07/25/17 15:30 CK-MB (CK-2) % Cancelled 07/24/17 22:55 Troponin I < 0.01 ng/mL 07/25/17 15:30 NT-Pro-B Natriuret Pep < 11.1 pg/mL (0-450) 07/24/17 22:55 Total Protein 6.6 g/dL (5.8-8.3) 07/25/17 06:00 Albumin 3.7 g/dL (3.0-4.8) 07/25/17 06:00 Globulin 2.9 gm/dL 07/25/17 06:00 Albumin/Globulin Ratio 1.3 (1.1-1.8) 07/25/17 06:00 Attending/Attestation - Attestation I have personally seen and examined this patient.: Yes I have fully participated in the care of the patient.: Yes I have reviewed all pertinent clinical information, including history, physical exam and plan: Yes Notes (Text): 07/25/17 17:07 42 year old male with past medical hsitory of chronic back pain, ANTHONY, and substance abuse who presented with complaint of abdominal pain and LE edema. He also reported recent cocaine use. He was counselled on risks of continued substance abuse. He had mildly elevated LFTs which improved. Hepatitis panel was pending. US abdomen was reviewed as above. GI recommended outpatient follow up. His symptoms improved. Patient is discharged home to follow up with his pmd. Follow up with GI. Monitor LFTs. Recommend outpatient echocardiogram. Counselled on risks of continued substance abuse. Saúl Ha MD Hospitalist.
[2017-07-25 12:16] VITALS: TEMP 98.4; O2SAT 20
--- NOTE | 2017-07-25 15:10 | US ---
PROCEDURE: Bilateral lower extremity venous duplex Doppler. HISTORY: r/o dvt COMPARISON: None available. TECHNIQUE: Bilateral common femoral, superficial femoral, popliteal and posterior tibial veins were evaluated. Flow was assessed with color Doppler, compressibility, assessment of phasic flow and augmentation response. FINDINGS: COMMON FEMORAL VEIN: Right CFV: Unremarkable. Left CFV: Unremarkable. SUPERFICIAL FEMORAL VEIN: Right SFV: Unremarkable. Left SFV: Unremarkable. POPLITEAL VEIN: Right Popliteal: Unremarkable. Left Popliteal: Unremarkable. POSTERIOR TIBIAL VEIN: Right PTV: Unremarkable. Left PTV: Unremarkable. OTHER FINDINGS: None. IMPRESSION: No evidence of deep venous thrombosis.
[2017-07-25 16:12] LABS: TROPONIN I < 0.01 ng/mL
[2017-07-25 16:24] LABS: CK-MB 1.2 ng/mL (0.0-3.6)
[2017-07-25 18:23] VITALS: BP 110/65; PULSE 84
[2017-07-27 08:42] LABS: HEPATITIS B SURFACE AG Negative (NEGATIVE)
[2017-07-27 08:48] LABS: HEPATITIS A IGM NEGATIVE (NEGATIVE); HEPATITIS B CORE AB NEGATIVE (NEGATIVE)
[2017-07-27 09:00] LABS: HEPATITIS C ANTIBODY NEGATIVE (NEGATIVE)
== END 2017-07-25 18:28 | disposition home or self-care (01) ==
LOC: ED 21:29 → ERH 07-25 01:02 → 2RSO 07-25 02:44
PROVIDERS: ADMIT Internal Medicine; ATTEND Internal Medicine
DX: R10.13 Epigastric pain (principal); M54.9 Dorsalgia, unspecified; R07.9 Chest pain, unspecified; M79.89 Other specified soft tissue disorders; E66.9 Obesity, unspecified; Z68.42 Body mass index [BMI] 45.0-49.9, adult; F17.210 Nicotine dependence, cigarettes, uncomplicated; G47.33 Obstructive sleep apnea (adult) (pediatric); G89.29 Other chronic pain; J45.909 Unspecified asthma, uncomplicated; Z82.49 Family history of ischemic heart disease and other diseases of the circulatory system
CPT/HCPCS: 71045; 76700; 80053; 80074; 82550; 82553; 83615; 83735; 83880; 84100; 84484; 85025; 85027; 85610; 85730; 93005; 93970; 94660; 96372; 99283; G0378; J1650; J7040